=== PATIENT | female | born 1995 | race Hispanic/Latino ===

== ENCOUNTER 2020-05-19 15:05 | Outpatient (CLI) | payer OTHER, SELFPAY ==
--- NOTE | ~2020-05-19 | US_ITS ---
EXAMINATION: US OB follow up DATE: 05/19/2020 15:37 INDICATION: Supervision of normal third trimester TECHNIQUE: Real-time ultrasound of the pelvis was performed. The interpreting radiologist was not pre sent for the study. COMPARISON: None FINDINGS: There is a single living fetus in vertex presentation. The placenta is fundal. cardia c activity and movement are noted. heart rate is 154 beats per minute (bpm). The amniotic fluid index is 14.1 cm which is normal. The following biometric data were obtained: Biparietal diameter (BPD): 8.2 cm; head circumference (HC): 29.9 cm; abdominal circumference (AC): 27 .0 cm; femur length (FL): 5.8 cm. The femoral length to biparietal diameter ratio is greater than two standard deviations below the isiah n. These measurements are otherwise concordant. Estimated weight is 1733 g +/- 259 g, which correlates with the 67th percentile when 07/25/2020 is used as estimated date of delivery. As single measurements, these parameters are each equal to the following estimated gestational ages w ith ranges of +/- 2 standard deviations: BPD: 33 weeks 1 days +/- 3 weeks 1 days. HC: 33 weeks 1 days +/- 3 weeks 0 days. AC: 31 weeks 1 days +/- 3 weeks 0 days. FL: 30 weeks 2 days +/- 3 weeks 0 days. estimated gestational age based solely on measurements from this exam is 32 weeks 0 days +/- 2 weeks 2 days. IMPRESSION: 1. Single living fetus in vertex presentation. 2. Normal amniotic fluid index. 3. Estimated weight is 1733 g +/- 259 g, which correlates with the 67th percentile when 020 is used as estimated date of delivery. 4. Femoral length to biparietal diameter ratio greater than two standard deviations below the mean. Reviewed, dictated and finalized at location A. IMPRESSION: 1. Single living fetus in vertex presentation. 2. Normal amniotic fluid index. 3. Estimated weight is 1733 g +/- 259 g, which correlates with the 67th p ercentile when 07/25/2020 is used as estimated date of delivery. 4. Femoral length to biparietal diameter ratio greater than two standard deviat ions below the mean.
== END 2020-05-19 15:06 | disposition home or self-care (01) ==
PROVIDERS: Visit Provider Obstetrics & Gynecology
DX: Z34.93 Encounter for supervision of normal pregnancy, unspecified, third trimester (principal); Z3A.32 32 weeks gestation of pregnancy
CPT/HCPCS: 76816

== ENCOUNTER 2020-06-24 19:35 | Observation (INO) | payer OTHER, SELFPAY ==
[2020-06-24 20:08] VITALS: BP 121/80; PULSE 108
[2020-06-24 20:24] LABS: Add Urine Microscopic? NO; Appearance Urine Clear (Clear); Bilirubin Urine Negative (Negative); Blood Urine Negative (Negative); Color Urine Yellow (Yellow); Glucose Urine UA Negative (Negative); Ketones Urine Negative (Negative); Leukocyte Esterase Ur Negative LEU/UL (Negative); Nitrate Urine Negative (Negative); Protein Urine Negative (Negative); Specific Grav Ur 1.023 (1.001-1.035); Urobilinogen Urine Negative mg/dL (<2.0)
--- NOTE | 2020-06-25 18:40 | PM.OBTRLD ---
OB - Triage/Final Diagnosis Visit Information Reason for evaluation: threatened labor Evaluation Baseline heart rate: 150 Variability: Average (6-10) monitor accelerations: Present monitor decelerations: None Cervical dilation (cm): 0 Cervical effacement (%): 0 station: -4 Laboratory results: Laboratory Tests 06/24/20 20:13 Urine Color Yellow Urine Appearance Clear Urine pH 6.0 Ur Specific [place] 1.023 Urine Protein Negative Urine Glucose (UA) Negative Urine Ketones Negative Ur Blood (Man) Negative Urine Nitrate Negative Urine Bilirubin Negative Urine Urobilinogen Negative Leukocyte Esterase Rfl Negative Vital signs: Vital Signs - 24 hr 06/24/20 20:08 Pulse Rate 108 H Blood Pressure 121/80 Final Diagnosis (1) False labor: Code(s): O47.9 - False labor, unspecified Status: Acute
== END 2020-06-24 20:55 | disposition home or self-care (01) ==
PROVIDERS: Admitting Provider Obstetrics & Gynecology; Visit Provider Obstetrics & Gynecology
DX: O47.03 False labor before 37 completed weeks of gestation, third trimester (principal); Z3A.35 35 weeks gestation of pregnancy
CPT/HCPCS: 81003; G0378; G0379

== ENCOUNTER 2020-07-04 13:47 | Observation (INO) | payer OTHER, SELFPAY ==
[2020-07-04 14:21] VITALS: BP 114/71; PULSE 102
[2020-07-04 14:30] VITALS: BMI 28.2
--- NOTE | 2020-07-04 15:30 | PC.NURSE ---
as this RN was giving Discharge instruction, RN reenforced pt for weekly routine check up. Pt states she does not have appointment and she is too busy to have weekly check up. This RN explained importance of routine check up but she insists she does not have time for visit. pt left hospital demonstrate understanding.
--- NOTE | 2020-07-06 12:49 | PM.OBTRLD ---
OB - Triage/Final Diagnosis Final Diagnosis (1) False labor: Code(s): O47.9 - False labor, unspecified Status: Acute
== END 2020-07-04 15:30 | disposition home or self-care (01) ==
PROVIDERS: Admitting Provider Obstetrics & Gynecology; Visit Provider Obstetrics & Gynecology
DX: O47.03 False labor before 37 completed weeks of gestation, third trimester (principal); Z3A.37 37 weeks gestation of pregnancy
CPT/HCPCS: G0378; G0379

== ENCOUNTER 2020-07-12 23:47 | Inpatient (IN) | payer OTHER, SELFPAY ==
[2020-07-13] VITALS (70 sets, daily range): BP systolic 78–210; BP diastolic 34–187; PULSE 81–165; RESP 16–18; TEMP 36.9–37.3; O2SAT 83–100
[2020-07-13] MEDS: LACTATED RINGERS 1,000 ML 125 ML IV CONT
[2020-07-13] MEDS: AMPICILLIN 2 GM/NS 100 ML 2 GM/100 ML BAG IVPB (00:01)
[2020-07-13] MEDS: ONDANSETRON INJ 4 MG/2 ML VIAL IV PUSH (00:09)
[2020-07-13 00:18] LABS: Basophils Percent Auto 0.2 % (0.2-1.2); Eosinophils Absolute Auto 0.1 K/mm3 (0-0.3); Eosinophils Percent Auto 0.7 % (0-4.4); Hematocrit 31.9 % (37.0-47.0); Hemoglobin 11.1 g/dL (12.0-15.0); Immature Granulocyte Absolute 0.17 K/mm3 (0.00-0.031); Immature Granulocyte Percent A 1.5 % (0-0.5); Immature Platelet Fraction Pct 6.8 % (0.9-11.2); Lymphocytes Absolute Auto 1.24 K/mm3 (0.9-3.2); Lymphocytes Percent Auto 10.9 % (18.3-44.2); Mean Corpuscular HGB Conc 34.8 g/dl (32-36); Mean Corpuscular Hemoglobin 31.6 pg (26-34); Mean Corpuscular Volume 90.9 fl (80-100); Mean Platelet Volume 11.2 fl (7.4-10.4); Monocytes Percent Auto 8.4 % (2.6-8.5); Neutrophils Absolute Auto 8.9 K/mm3 (1.3-6.7); Neutrophils Percent Auto 78.3 % (45.5-73.1); Platelet Count Result 131 k/mm3 (150-375); Red Blood Count 3.51 M/mm3 (4.2-5.4); Red Cell Distribution Width 13.9 % (11.5-14.5); White Blood Count 11.4 K/mm3 (4.5-10.0)
--- NOTE | 2020-07-13 00:54 | P.PNAN_ITS ---
Anes - Eval Pre Procedure Procedure: Labor epidural Date/Time: 07/13/20 00:54 Surgeon: Shabana Preop Diagnosis: pain during labor Pre Op Diagnosis: Contractions Patient Data Age: 24 Gender: F Height: Weight: Last Vital Signs Temp 37.0 C 07/13/20 00:04 Pulse 139 H 07/13/20 00:53 BP 201/170 H 07/13/20 00:53 Pulse Ox 100 07/13/20 00:52 Allergies Allergy/AdvReac Type Severity Reaction Status Date / Time No Known Allergies Allergy Unverified 12/02/17 15:18 Home Medications Medication Instructions Recorded Confirmed Type PNV cmb#95-ferrous fumarate-FA 1 tablet PO DAILY 07/04/20 07/04/20 History [] aspirin 81 mg PO DAILY 07/04/20 07/04/20 History calcium carbonate-vitamin D3 1 tablet PO DAILY 07/04/20 07/04/20 History [Calcium with Vitamin D] famotidine [Pepcid] 20 mg PO BID 07/04/20 07/04/20 History Laboratory Tests 07/13/20 07/13/20 07/13/20 00:04 00:04 00:04 WBC 11.4 K/mm3 H K/mm3 (4.5-10.0) RBC 3.51 M/mm3 L M/mm3 (4.2-5.4) Hgb 11.1 g/dL L g/dL (12.0-15.0) Hct 31.9 % L % (37.0-47.0) MCV 90.9 fl fl (80-100) MCH 31.6 pg pg (26-34) MCHC 34.8 g/dl g/dl (32-36) RDW 13.9 % % (11.5-14.5) Plt Count 131 k/mm3 L k/mm3 (150-375) MPV 11.2 fl H fl (7.4-10.4) Immature Gran % (Auto) 1.5 % H % (0-0.5) Neut % (Auto) 78.3 % H % (45.5-73.1) Lymph % (Auto) 10.9 % L % (18.3-44.2) [place] % (Auto) 8.4 % % (2.6-8.5) Eos % (Auto) 0.7 % % (0-4.4) Baso % (Auto) 0.2 % % (0.2-1.2) Lymph # (Auto) 1.24 K/mm3 K/mm3 (0.9-3.2) [place] # (Auto) 1.0 K/mm3 H K/mm3 (0.1-0.6) Eos # (Auto) 0.1 K/mm3 K/mm3 (0-0.3) Baso # (Auto) 0.0 K/mm3 K/mm3 (0.0-0.1) Abs Immat Gran (auto) 0.17 K/mm3 H K/mm3 (0.00-0.031) Absolute Neuts (auto) 8.9 K/mm3 H K/mm3 (1.3-6.7) Absolute Nucleated RBC 0.0 K/mm3 K/mm3 (0.0-0.012) Nucleated RBC % 0.0 % % (0.0-0.2) % Immature Plt Fraction 6.8 % % (0.9-11.2) RPR Pending HIV 1&2 Ab/P24 Ag 4thGn Pending Patient hx anesthesia problems: none Family hx anesthesia problems: none PMFSH Family History Family History Other Cancer Grandparent Diabetes mellitus Social History Social History Substance use: current Last use: three months ago Gender identity (if verbalized by the patient): Female Sexual Orientation (if Verbalized by the Patient): Straight or Heterosexual Spiritual care concerns: No Exam Day of Procedure 07/13/20 00:54
[2020-07-13 01:04] LABS: HIV 1/2 Ab P24 Ag Result Negative (Negative)
--- NOTE | 2020-07-13 02:56 | PM.IMHP ---
H&P: HPI History of Present Illness Date/Time: 07/13/20 02:56 Chief complaint: Contractions Narrative: Marcy Barber is a 24 year old female at 38 weeks and 2 days gestation presenting to Labor and delivery with reports of leaking of fluid and contractions. care with Dr. Donald. she states no complications during her care. Review of Systems Constitutional: Constitutional: Reports no additional constitutional complaints Cardiovascular: Cardiovascular: Reports no additional cardiovascular complaints Respiratory: Respiratory: Reports no additional respiratory complaints Gastrointestinal: Gastrointestinal: Reports no additional gastrointestinal complaints Genitourinary: Genitourinary: Reports no additional female genitourinary complaints Musculoskeletal: Musculoskeletal: Reports no additional musculoskeletal complaints Neurologic: Reports system reviewed and no additional complaints, except as documented Psychiatric: Psychiatric: Reports no additional psychiatric complaints Endocrine: Endocrine: Reports no additional endocrine complaints Hematologic/Lymphatic: Hematologic/Lymphatic: Reports no additional hematologic/lymphatic complaints Allergic/Immunologic: Allergic/Immunologic: Reports no additional allergic/immunologic complaints [facility] Family History Family History Other Cancer Grandparent Diabetes mellitus Social History Social History Substance use: current Last use: three months ago Gender identity (if verbalized by the patient): Female Sexual Orientation (if Verbalized by the Patient): Straight or Heterosexual Spiritual care concerns: No Meds Home Medications and Allergies Home Medications Medication Instructions Recorded Confirmed Type PNV cmb#95-ferrous fumarate-FA 1 tablet PO DAILY 07/04/20 07/04/20 History [] aspirin 81 mg PO DAILY 07/04/20 07/04/20 History calcium carbonate-vitamin D3 1 tablet PO DAILY 07/04/20 07/04/20 History [Calcium with Vitamin D] famotidine [Pepcid] 20 mg PO BID 07/04/20 07/04/20 History Allergies Allergy/AdvReac Type Severity Reaction Status Date / Time No Known Allergies Allergy Unverified 12/02/17 15:18 Vital Signs Vital Signs - 24 hr 07/13/20 00:04 07/13/20 00:10 07/13/20 00:16 Temperature 37.0 C Pulse Rate 112 H 106 H Blood Pressure 157/110 H 129/81 Pulse Oximetry 07/13/20 00:24 07/13/20 00:26 07/13/20 00:28 Temperature Pulse Rate Blood Pressure Pulse Oximetry 100 100 100 07/13/20 00:30 07/13/20 00:35 07/13/20 00:41 Temperature Pulse Rate 99 97 Blood Pressure 128/73 142/93 H Pulse Oximetry 100 100 07/13/20 00:42 07/13/20 00:43 07/13/20 00:44 Temperature Pulse Rate 95 Blood Pressure 111/92 H Pulse Oximetry 100 98 07/13/20 00:45 07/13/20 00:47 07/13/20 00:48 Temperature Pulse Rate 89 136 H Blood Pressure 111/94 H 162/124 H Pulse Oximetry 100 07/13/20 00:49 07/13/20 00:51 07/13/20 00:52 Temperature Pulse Rate 117 H 107 H Blood Pressure 142/65 H 115/48 L Pulse Oximetry 100 07/13/20 00:53 07/13/20 00:55 07/13/20 00:57 Temperature Pulse Rate 139 H 129 H Blood Pressure 201/170 H 191/146 H Pulse Oximetry 98 07/13/20 00:59 07/13/20 01:01 07/13/20 01:02 Temperature Pulse Rate 127 H 113 H Blood Pressure 109/70 93/73 L Pulse Oximetry 99 07/13/20 01:03 07/13/20 01:05 07/13/20 01:07 Temperature Pulse Rate 112 H 110 H 112 H Blood Pressure 78/43 L 106/60 81/55 L Pulse Oximetry 98 07/13/20 01:10 07/13/20 01:12 07/13/20 01:15 Temperature Pulse Rate 101 H 111 H 104 H Blood Pressure 115/71 123/73 123/65 Pulse Oximetry 100 07/13/20 01:17 07/13/20 01:22 07/13/20 01:31 Temperature Pulse Rate 112 H Blood Pressure 112/72 Pulse Oximetry 100 100 07/13/20 01:36 07/13/20 01:41 07/13/20 01:45 Temperature
--- NOTE | 2020-07-13 03:01 | WPDHPUPDATE1 ---
History and Physical Update Update Date/Time: 07/13/20 03:01 History and Physical has been reviewed, including an updated exam of the patient. There are NO changes in the patient's condition. Risks, benefits, and alternatives have been discussed and questions answered. Patient agrees to proceed with procedure.
--- NOTE | 2020-07-13 03:01 | PM.OBPRVD ---
OB - Delivery Note Procedure Delivery date: 07/13/20 Procedure: Normal spontaneous vaginal delivery Intrapartal events: None Induction method: none Delivery monitor: external FHT and external uterine Route of delivery: Laceration Description: None Specimen: No Estimated blood loss (mL): 100 Anesthesia type: Epidural Narrative: Once she was noted to be complete and ready to push, the labor bed was broken down and legs were placed in stirrups for support. With contractions and maternal efforts, the presented in VALENTIN position. The head was delivered. Checked for nuchal cord, nuchal cord x1 reduced. Gentle downward traction was applied and the anterior shoulder delivered without issues, followed by the posterior shoulder and rest of the body. was vigorous and crying, so delayed cord clamping of approximately 1 minute was performed. The cord was clamped and cut. Cord gasses collected. Placenta was delivered spontaneously. IV oxytocin administered and fundal massage applied. Exam was performed to identify any lacerations. No lacerations noted. Good hemostasis noted. Patient tolerated the procedure well. All instrument and sponge counts were correct at the end of the procedure. Baby Date of : 07/13/20 Time of : 02:43 Weeks of gestation at delivery: 38 Infant gender: Female Weight (pounds): 7 Weight (ounces): 2 presentation: vertex position: Left Occiput Anterior Placenta delivery description: Spontaneous cord vessel description: 3 Vessels score one minute: 9 score five minutes: 9
[2020-07-13] MEDS: OXYTOCIN 30 UNITS/NS 500 ML 30 UNITS/500 ML BAG 125 UNITS IV CONT (03:21)
[2020-07-13 04:37] LABS: Benzodiazepines Screen Urine Negative (Negative)
[2020-07-13 04:44] LABS: Amphetamine Screen Urine Negative (Negative); Cocaine Screen Urine Negative (Negative); Methadone Screen Urine Negative (Negative); Opiate Screen Urine Negative (Negative); Phencyclidine Screen Urine Negative (Negative)
[2020-07-13 05:13] LABS: Cannabinoid Screen Urine Negative (Negative)
[2020-07-13] MEDS: IBUPROFEN 600 MG TABLET PO ×2 (05:17→12:47)
[2020-07-13] MEDS: WITCH HAZEL 40 PADS 1 PAD TOPICAL (05:18)
[2020-07-13 05:30] LABS: Barbiturate Screen Urine Negative (Negative)
--- NOTE | 2020-07-13 06:26 | PC.NURSE ---
07/13/2020 at 0530. Patient transferred to post room 292. Support person present. Oriented to unit, room, information board, rooming in, admission packet and security measures. Patient verbalizes understanding.
[2020-07-13] MEDS: ACETAMINOPHEN 325 MG TABLET 650 MG PO (08:14)
[2020-07-13 12:29] LABS: Rapid Plasma Reagin Non-Reactive (NonReactive)
--- NOTE | 2020-07-13 14:11 | PCCCNOTE ---
Addendum entered by PATTY Sharma 07/14/20 16:33: Received call today from [facility] Jennifer who reports that they will be taking custody of Baby Sunil at discharge. Jennifer will be coming to the hospital this afternoon to inform pt. Jennifer will also meet with pt.'s sister Jewell to determine if she is willing to be placement. Nursing is aware. Will follow. Addendum entered by PATTY Sharma 07/13/20 15:52: Call from [facility] yarn worker Jennifer. Jennifer will come speak to pt. this evening. Jennifer can be reached at [phone]. Original Note: Care Coordination Consult: Received consult regarding open DCFS case. Met with pt. who reports she lives at home with family. Mother Natasha is in room and supportive. FOB is involved however per pt. they are no longer romantically involved. Pt. is aware she tested negative for substances upon admission to hospital. Reports previous marijuana use with last use three months ago. Pt. does report an open DCFS case in which her two other children are currently in the custody of the [facility]. Pt.'s sister Jewell is currently the placement for the two children. Received call from [facility] clinical case manager Jewell Townsend @ [phone] who confirms pt. is currently receiving services due to an open DCFS case. Informed pt. that [facility] will be contacted and they will determine whether a new report will be taken and/or they will come speak to pt. Completed online DCFS report intake ID [id number].
[2020-07-14] MEDS: IBUPROFEN 600 MG TABLET PO ×2 (05:30→14:39)
[2020-07-14 05:42] LABS: Hematocrit 31.6 % (37.0-47.0); Hemoglobin 10.4 g/dL (12.0-15.0)
[2020-07-14 08:20] VITALS: BP 108/68; PULSE 73; RESP 16; TEMP 37.3; O2SAT 100
--- NOTE | 2020-07-14 13:13 | PM.OBDSVD ---
DS: Admitting Diagnosis Admitting Diagnosis Admitting Diagnosis: Contractions term Spontaneous onset of labor DS: Discharge Diagnosis Discharge Diagnosis (1) Term delivered: Code(s): O80 - Encounter for full-term uncomplicated delivery Status: Acute (2) Spontaneous rupture of membranes: Status: Acute (3) Active labor: Status: Acute OB - DS: Summary Hospital Course Time spent discussing smoking cessation with patient: 3 to 10 minutes OB Procedures : Ultrasound OB Procedures Intrapartum: Spontaneous Vag Delivery OB Procedures: : None Peripartum Data Delivery Method: Natural Vaginal Laceration Description: None Episiotomy description: None complications: none [place] 1: Gender: Female Disposition of : home Status at Discharge Functional status at discharge: independent ambulation Overall status at discharge: patient is back to baseline Time Spent with Patient Time attestation: Total time spent providing and/or coordinating discharge services: Time spent: Less than 30 minutes Exam Const: General: cooperative, healthy appearing, comfortable, no acute distress, well developed, alert, awake and Physically active Nutritional Appearance: average body habitus and well nourished Orientation/consciousness: oriented to person Limitations: no limitations HENMT: Head: normal to inspection Ears: hearing grossly normal bilaterally General nose exam: Normal external nose present Face and sinus: normal facial exam Mouth: Yes Normal oral and palatal mucosa present Eyes: General: appearance normal, both eyes and all related structures Conjunctivae: conjunctival abnormality left ( pinkeye conjunctivitis) Sclera: sclerae normal Cornea: corneas normal Pupils: Equal, round and reactive pupils present EOM: EOMs intact bilaterally Eyes/upper lids images: 1. Neck: Neck: normal visual inspection and full ROM Thyroid: thyroid normal Chest: Chest palpation & inspection: normal inspection of the chest Breast/axilla inspection: normal inspection of the breasts Resp: Effort & Inspection: normal respiratory effort Auscultation: clear to auscultation bilaterally Percussion: percussion normal Cardio: Palpation: normal PMI Rate: regular rate Rhythm: regular rhythm Heart sounds: S1 normal heart sound present and S2 normal heart sound present GI: Inspection: normal to inspection GI Palp: Yes Soft to palpation Auscultation: normal bowel sounds : External Female Exam: normal external appearance Bimanual exam- vagina & uterus: non-tender Back/Spine/Pelvis: Back: no CVA tenderness Cervical Spine: normal cervical lordosis Skin: General skin exam: normal color and no rashes or lesions noted Neuro: General: patient oriented x3, gait normal, tone normal, moves all extremities and Normal light touch and pain sensation Extrem: General: normal to inspection and full ROM Psych: Appearance: grossly normal Mental Status: mental status grossly normal Speech and movement: Normal speech and movement present Affect: normal affect Attitude: cooperative Thought process: Normal thought process present Thought content: Yes Normal thought content present Insight: Good insight present (Psych) Judgement: Good judgement present (Psych) DS: Data Data Completed and Pending Labs on day of discharge: Labs from last 24 hours 07/14/20 07/13/20 05:24 00:04 Hgb 10.4 L Hct 31.6 L Antibody Identification Anti-c Antigen Identification c Antigen - NEGATIVE MARY ALICE, IgG Interpret Not Performed MARY ALICE, Poly Interpret Negative MARY ALICE, Complement Interp Not Performed Discharge Plan Discharge Attending physician on discharge: Murali Donald Discharging Clinician: Murali Donald Anticipated Discharge Date/Time: 07/15/20 13:18 Patient Disposition: Home, Self-Care Activity: unlimited and may drive after 2 weeks Di
--- NOTE | 2020-07-14 13:49 | WPDANLDPN2 ---
Anes-Prog Note L&D Date/Time: 07/14/20 13:49 Comfortable throughout: labor and delivery Neuraxial method: epidural Epidural/Spinal procedure site: clean & non-tender Neuro status: Neuro function grossly intact. Cardiovascular status: normal Respiratory status: normal Airway patency: baseline Mental status: baseline Post-Op hydration status: normal Vital Signs: Last Vital Signs Temp 37.3 C 07/14/20 08:20 Pulse 73 07/14/20 08:20 Resp 16 07/14/20 08:20 BP 108/68 07/14/20 08:20 Pulse Ox 100 07/14/20 08:20 Pain score (VAS): 09/06 Post-procedural complaints: none Patient feedback: Patient satisfied with anesthetic care.
[2020-07-14] MEDS: POLYMYXIN/TRIMETHOPRIM OPHTH 10 ML DROPS 1 DROP EACH EYE (14:40)
[2020-07-14 19:50] VITALS: BP 111/67; PULSE 81; RESP 16; TEMP 36.6
--- NOTE | 2020-07-14 20:07 | PM.OBPNVD ---
OB - PN: Subj Subjective Date/time seen: 07/14/20 20:07 Patient comments: no complaints, pain well controlled, tolerating diet and flatus present [place] baby status: doing well and bottle feeding well [place] feeding status: exclusively bottle feeding OB - PN: Obj Data Labs CBC & Chem 7: 07/14/20 05:24 Labs: Laboratory Results - last 24 hr 07/14/20 05:24 Hgb 10.4 L Hct 31.6 L OB - PN A/P Assessment and Plan (1) Term delivered: Code(s): O80 - Encounter for full-term uncomplicated delivery Status: Acute Plan day: 1 Plan: routine care and discharge home (07/15/20) Time Spent With Patient Time: Total time spent is greater than 50% in coordination of care (as documented) at patient's floor/unit and/or counseling patient: Time with patient: less than 15 minutes Review of Systems Review of Systems: All systems reviewed & are unremarkable except as noted in HPI and below Exam Const: General: cooperative, healthy appearing, comfortable, well developed, alert, awake and Physically active Nutritional Appearance: average body habitus and well nourished HENMT: Head: normal to inspection Eyes: General: appearance normal, both eyes and all related structures Conjunctivae: conjunctival abnormality left conjunctival chemosis and conjunctival injection Pupils: Equal, round and reactive pupils present Neck: Neck: normal visual inspection and full ROM Chest: Chest palpation & inspection: normal inspection of the chest Breast/axilla inspection: normal inspection of the breasts Breast/axilla palpation: normal palpation of the breasts Resp: Effort & Inspection: normal respiratory effort Auscultation: clear to auscultation bilaterally Cardio: Rate: regular rate Rhythm: regular rhythm GI: Inspection: normal to inspection GI Palp: Yes Soft to palpation Percussion: Yes normal to percussion Auscultation: normal bowel sounds : External Female Exam: normal external appearance Bimanual exam- vagina & uterus: non-tender Back/Spine/Pelvis: Back: no CVA tenderness Skin: General skin exam: normal color Neuro: General: patient oriented x3, gait normal, tone normal, moves all extremities, Normal light touch and pain sensation, no meningeal signs, no focal motor deficits and CN's II-XI intact bilaterally Extrem: General: normal to inspection and full ROM Psych: Appearance: grossly normal Mental Status: mental status grossly normal Speech and movement: Normal speech and movement present Attitude: cooperative Thought process: Normal thought process present Thought content: Yes Normal thought content present Insight: Good insight present (Psych) Judgement: Good judgement present (Psych)
[2020-07-15] MEDS: IBUPROFEN 600 MG TABLET PO (06:40)
--- NOTE | 2020-07-15 06:45 | PC.NURSE ---
Pt introductions made and plan of care discussed per post , pain management, bottle feeding, daily care activities and pending discharge to home . PT verbalized understanding of such care.
[2020-07-15 08:10] VITALS: BP 116/80; PULSE 82; RESP 18; TEMP 37.1; O2SAT 100
--- NOTE | 2020-07-15 10:03 | WPDANLDPN2 ---
Anes-Prog Note L&D Date/Time: 07/15/20 10:03 Comfortable throughout: labor and delivery Neuraxial method: epidural Epidural/Spinal procedure site: clean & non-tender Neuro status: Neuro function grossly intact. Cardiovascular status: normal Respiratory status: normal Airway patency: baseline Mental status: baseline Post-Op hydration status: normal Vital Signs: Last Vital Signs Temp 37.1 C 07/15/20 08:10 Pulse 82 07/15/20 08:10 Resp 18 07/15/20 08:10 BP 116/80 07/15/20 08:10 Pulse Ox 100 07/15/20 08:10 Pain score (VAS): 0 I/O: Intake & Output 07/14/20 07/15/20 07/15/20 23:59 07:59 15:59 Intake Total 100 Balance 100 Post-procedural complaints: none Patient feedback: Patient satisfied with anesthetic care.
[2020-07-15 10:45] VITALS: PULSE 82; RESP 18; O2SAT 100
[2020-07-15] MEDS: ACETAMINOPHEN 325 MG TABLET 650 MG PO (10:50)
[2020-07-15] MEDS: DOCUSATE SODIUM 100 MG CAPSULE PO (10:50)
--- NOTE | 2020-07-15 11:35 | PC.NURSE ---
DCFS treasury representative here to discuss plan of care with pt and care of being given to her sister Jewell Barber who already has her other two children. Marcy lives next door with her parents. All family members aware and were instructed by returned case inspector from [facility] as to plan of care of . Both patient and her mother verbalized understanding as well as the sister, Jewell.
--- NOTE | 2020-07-15 12:30 | PC.NURSE ---
Pt received discharge instructions per protocol and verbalized understanding of such care.
--- NOTE | 2020-07-15 13:00 | PC.NURSE ---
PT discharged to home ambulatory accompanied by sibling with and pt's mother and taken to waiting car. follow up appts confirmed
[2020-07-16 10:53] VITALS: BP 124/82; PULSE 99; RESP 20; TEMP 36.7; O2SAT 100
== END 2020-07-15 13:00 | disposition home or self-care (01) | DRG 560 ==
LOC: ANHLDR 07-13 02:36 → ANHOB2 07-13 05:50
PROVIDERS: Obstetrics & Gynecology; Admitting Provider Obstetrics & Gynecology; Visit Provider Obstetrics & Gynecology
DX: O99.824 Streptococcus B carrier state complicating childbirth (principal); O69.81X0 Labor and delivery complicated by cord around neck, without compression, not applicable or unspecified; Z3A.38 38 weeks gestation of pregnancy; Z37.0 Single live birth; H10.9 Unspecified conjunctivitis
CPT/HCPCS: 36415; 80307; 85014; 85018; 85025; 85055; 86592; 86703; 86850; 86870; 86880; 86900; 86901; 86902; 86905; A9270; G0432; J0290; J2405; J2590; J2795; J7120